=== PATIENT | female | born 1995 | race Caucasian/White ===

== ENCOUNTER 2023-05-18 17:13 | Emergency (ER) | payer OTHER, SELFPAY ==
[2023-05-18 17:48] VITALS: BP 139/93; PULSE 88; RESP 20; TEMP 36.8; O2SAT 98; BMI 38.5
--- NOTE | 2023-05-18 17:51 | ED.GENADULT ---
HPI - General Adult General Chief complaint: Upper Respiratory Symptoms Stated complaint: fever Source: patient Mode of arrival: ambulatory Limitations: no limitations History of Present Illness HPI narrative: patient left before being evaluated by ED provider Related Data Allergies Allergy/AdvReac Type Severity Reaction Status Date / Time No Known Allergies Allergy Verified 05/18/23 17:48 [facility] Social History Social History Advance Directives: No Advance Directives Information Provided: No Physical Exam ED Vital Signs: Vital Signs - 24 hr 05/18/23 17:48 Temperature 98.2 F Pulse Rate 88 Respiratory Rate 20 Blood Pressure 139/93 H Pulse Oximetry 98 Oxygen Delivery Method Room Air BMI result Body Mass Index 38.5 Course Course Course Narrative: RME: 28 yold female presents to the ED for fever, coughing, runny nose, and sore throat. Covid, influenza, and strep ordered. Medical Decision Making Lab Data Labs: Lab Results 05/18/23 05/18/23 05/18/23 Range/Units 19:30 19:30 19:30 COVID-19 (EMILY) Negative (Negative) COVID-19 Clin Com See Note Influenza Type A (ALMAZ) Negative (Negative) Influenza Type B (ALMAZ) Negative (Negative) Influenza A & B Note See Note S. pyogenes GrpA ALMAZ Negative (Negative) Discharge Plan Discharge Clinical Impression: Fever Patient Disposition: Elopement Interventions: LWBS Worksheet Last Done: 05/18/23 21:30 Discharge Date/Time: 05/18/23 21:31
== END 2023-05-18 21:31 | disposition left against medical advice (07) ==
PROVIDERS: Emergency Provider Emergency Medicine
DX: R50.9 Fever, unspecified (principal); R05.9 Cough, unspecified; J02.9 Acute pharyngitis, unspecified; Z20.822 Contact with and (suspected) exposure to COVID-19
CPT/HCPCS: 87502; 87635; 87651; 99281; 99283

== ENCOUNTER 2023-05-23 10:00 | Emergency (ER) | payer OTHER, SELFPAY ==
[2023-05-23 10:02] VITALS: BP 137/67; PULSE 88; RESP 19; TEMP 36.6; O2SAT 98; BMI 38.5
[2023-05-23 11:28] LABS: MANUAL DIFF FLAG NO
[2023-05-23 11:32] LABS: Basophils Absolute Auto 0.1 X10*3/uL (0.0-0.2); Basophils Percent Auto 0.4 % (0-2); Eosinophils Absolute Auto 0.5 X10*3/uL (0.0-0.4); Eosinophils Percent Auto 3.2 % (0-4); Hematocrit 42.1 % (37.0-47.0); Hemoglobin 13.8 g/dl (12.0-16.0); Imm Gran Abs Auto 0.23 X10*3/uL (0.00-0.03); Imm Gran Pct Auto 1.6 % (0.0-0.4); Lymphocytes Absolute Auto 2.9 X10*3/uL (1.2-4.9); Lymphocytes Percent Auto 20.3 % (20-40); Mean Corpuscular HGB Conc 32.8 g/dl (31.0-35.0); Mean Corpuscular Hemoglobin 26.6 pg (27.0-33.0); Mean Corpuscular Volume 81.3 fL (80.0-98.0); Mean Platelet Volume 9.5 fL (9.4-12.3); Monocytes Absolute Auto 0.7 X10*3/uL (0.1-1.2); Monocytes Percent Auto 5.1 % (2-11); Neutrophils Absolute Auto 9.8 x10*3/uL (2.0-8.3); Neutrophils Percent Auto 69.4 % (45-73); Platelet Count 276 X10*3/uL (160-400); Red Blood Count 5.18 X10*6/uL (4.20-5.50); Red Cell Distribution Width 12.9 % (11.0-16.0); White Blood Count 14.1 X10*3/uL (4.8-10.8)
[2023-05-23 11:45] LABS: Alanine Aminotransferase 36 U/L (0-31); Albumin Level 4.4 g/dL (3.5-5.0); Alkaline Phosphatase 111 U/L (39-117); Anion Gap 12 (12-20); Aspartate Amino Transferase 22 U/L (5-31); Bilirubin Total 0.6 mg/dL (0.0-1.0); Blood Urea Nitrogen 11 mg/dL (9-16); Calcium 9.8 mg/dL (8.4-10.2); Carbon Dioxide 26 mmol/L (22-29); Chloride 107 mmol/L (96-108); Creatinine Clr Calc Pharmacy 155.8; Estimated Glomerular Filt Rate > 60; Glucose Random 101 mg/dL (60-115); Potassium 3.9 mmol/L (3.3-5.1); Sodium 141 mmol/L (135-145); Total Protein 8.1 g/dL (6.5-8.0)
--- NOTE | 2023-05-23 11:55 | ED.GENADULT ---
HPI - General Adult General Chief complaint: Dental/Oral Stated complaint: jaw pain/ not feeling well Time Seen by Provider: 05/23/23 10:11 Source: patient Mode of arrival: ambulatory Limitations: no limitations History of Present Illness HPI narrative: 28 yold female presents to the ED for coughing, left jaw pain, bodyaches, chills, night sweats, and sinus pain for one week. patient denies any chest pain, shortness of breath, leg swelilng, calf pain, recent long travel, birthcontrol piills, or recent surgery. 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 patient states she was tested negative for flu, COVID, and strep Related Data Previous Rx's Medication Instructions Recorded azithromycin 250 mg tablet See Rx Instructions PO .COMPLEX #6 05/23/23 tabs benzonatate 200 mg capsule 200 mg PO BID PRN cough 5 days #15 05/23/23 caps prednisone 20 mg tablet 40 mg PO DAILY 5 days #10 tabs 05/23/23 Allergies Allergy/AdvReac Type Severity Reaction Status Date / Time No Known Allergies Allergy Verified 05/23/23 10:02 Review of Systems Review of Systems: coughing, sinus pain, bodyaches, chills, night sweats, subjecting fevers Yes all other systems are reviewed and are negative PMFSH Social History Social History Advance Directives: No Advance Directives Information Provided: No Physical Exam ED Vital Signs: Vital Signs - 24 hr 05/23/23 10:02 Temperature 98 F Pulse Rate 88 Respiratory Rate 19 Blood Pressure 137/67 Pulse Oximetry 98 Oxygen Delivery Method Room Air BMI result Body Mass Index 38.5 Const General: cooperative, healthy appearing, comfortable, no acute distress, well developed and awake Orientation/consciousness: oriented to person, oriented to place, oriented to time and patient oriented x3 HENMT Other: negative for any facial swelling or neck swelling. Oral exam negative for signs of any tooth infection / dental exam. Head: Yes normal to inspection, Yes No palpable skull fracture present, Yes normocephalic and Yes atraumatic Ears: hearing grossly normal bilaterally, external ears normal, TM's normal bilaterally, TM normal on the right, TM normal on the left, EAC's normal, mastoids normal and no periauricular adenopathy Face and sinus: Yes sinus tenderness ( maxillary sinus) Throat: Yes posterior oropharynx normal, Yes tonsils normal and Yes uvula midline Eyes General: appearance normal, both eyes and all related structures Neck Neck: Yes normal visual inspection, Yes full ROM, Yes no lymphadenopathy, Yes no meningeal signs, Yes trachea midline, Yes supple, No anterior neck swelling and No tender Chest Chest palpation & inspection: normal inspection of the chest and normal palpation of entire chest wall Resp Effort & Inspection: normal respiratory effort and able to speak in complete sentences Auscultation: clear to auscultation bilaterally Cardio Jugular venous distension: no JVD Heart sounds: S1 normal heart sound present and S2 normal heart sound present GI Inspection: Yes normal to inspection and No abdominal wall ecchymosis Palpation (GI): Soft to palpation, not firm, nontender, no guarding and not rigid General: No CVA tenderness and Yes no CVA tenderness Back/Spine/Pelvis Back: no CVA tenderness, No CVA tenderness and No back tenderness Skin General skin exam: no rashes or lesions noted and elasticity normal Neuro General: oriented to person, oriented to place, oriented to time, patient oriented x3, gait normal, tone normal, moves all extremities, Normal light touch and pain sensation, no meningeal signs, no focal motor deficits, CN's II-XI intact bilaterally and normal sensation to monofilament Extrem Other: Bilateral lower extremities negative for swelling, pitting edema, or calf tenderness. General: Yes normal to inspection and Yes full ROM Psych Appearance: grossly normal, well kempt and not disheveled Medical Decision Making Medical Decision Making MDM Narrative: 28-year-old female presents to ED for body aches, dry coughing, night sweats, chills, left-sided jaw pain, resolving sore throat. Patient states he tested negative for COVID, flu, and strep. Patient denies any chest pain or shortness of breath. Patient denies any pleurisy, leg swelling, calf pain, or coughing up blood. Patient denies any facial swelling or neck swelling. Patient denies any drooling or change in voice. Patient does states history of Aunt with heart attack at 44. Due to this patient will have EKG and 1 troponin. Heart score 1. Not suspecting pulmonary embolus. Not suspecting Won's angina or retropharyngeal abscess. Not suspecting myocardial infarction. Patient has history of asthma. lungs clear. Patient has white blood cell count [id number]. Seven days of symptoms will treat as bronchitis and be discharged with azithromycin and prednisone. Patient has albuterol inhaler at home which she will use. Differential Diagnosis Differential Diagnoses: The differential diagnosis associated with the presentation includes ( Bronchitis, pneumonia, myocardial infarction, Won angina, retropharyngeal abscess, viral syndrome, strep throat) Admission/Observation Consideration of admission/observation: Escalation of care including admission/observation considered Lab Data MDM Lab Attestation statement: I reviewed the patient's lab results. 05/23/23 11:23 05/23/23 11:23 Labs: Lab Results 05/23/23 05/23/23 05/23/23 Range/Units 11:23 11:23 11:23 WBC 14.1 H (4.8-10.8) X10*3/uL RBC 5.18 (4.20-5.50) X10*6/uL Hgb 13.8 (12.0-16.0) g/dl Hct 42.1 (37.0-47.0) % MCV 81.3 (80.0-98.0) fL MCH 26.6 L (27.0-33.0) pg MCHC 32.8 (31.0-35.0) g/dl RDW 12.9 (11.0-16.0) % Plt Count 276 (160-400) X10*3/uL MPV 9.5 (9.4-12.3) fL Immature Gran % (Auto) 1.6 H (0.0-0.4) % Neut % (Auto) 69.4 (45-73) % Lymph % (Auto) 20.3 (20-40) % Duchesne % (Auto) 5.1 (2-11) % Eos % (Auto) 3.2 (0-4) % Baso % (Auto) 0.4 (0-2) % Lymph # (Auto) 2.9 (1.2-4.9) X10*3/uL Duchesne # (Auto) 0.7 (0.1-1.2) X10*3/uL Eos # (Auto) 0.5 H (0.0-0.4) X10*3/uL Baso # (Auto) 0.1 (0.0-0.2) X10*3/uL Abs Immat Gran (auto) 0.23 H (0.00-0.03) X10*3/uL Absolute Neuts (auto) 9.8 H (2.0-8.3) x10*3/uL Absolute Nucleated RBC 0.000 (0.0-0.012) X10*3/uL Nucleated RBC % (auto) 0.0 (0.0-0.2) /100WBC PT 12.0 (10.0-13.1) SEC INR 1.0 (0.9-1.1) APTT 34.0 (26.0-36.4) SEC Sodium 141 (135-145) mmol/L Potassium 3.9 (3.3-5.1) mmol/L Chloride 107 (96-108) mmol/L Carbon Dioxide 26 (22-29) mmol/L Anion Gap 12 (12-20) BUN 11 (9-16) mg/dL Creatinine 0.68 (0.5-1.4) mg/dL Estim Creat Clear Calc 155.8 Estimated GFR > 60 Random Glucose 101 (60-115) mg/dL Calcium 9.8 (8.4-10.2) mg/dL Total Bilirubin 0.6 (0.0-1.0) mg/dL AST 22 (5-31) U/L ALT 36 H (0-31) U/L Alkaline Phosphatase 111 (39-117) U/L Troponin I High Sens (<3.5-17.0) ng/L Total Protein 8.1 H (6.5-8.0) g/dL Albumin 4.4 (3.5-5.0) g/dL 05/23/23 Range/Units 11:23 WBC (4.8-10.8) X10*3/uL RBC (4.20-5.50) X10*6/uL Hgb (12.0-16.0) g/dl Hct (37.0-47.0) % MCV (80.0-98.0) fL MCH (27.0-33.0) pg MCHC (31.0-35.0) g/dl RDW (11.0-16.0) % Plt Count (160-400) X10*3/uL MPV (9.4-12.3) fL Immature Gran % (Auto) (0.0-0.4) % Neut % (Auto) (45-73) % Lymph % (Auto) (20-40) % Duchesne % (Auto) (2-11) % Eos % (Auto) (0-4) % Baso % (Auto) (0-2) % Lymph # (Auto) (1.2-4.9) X10*3/uL Duchesne # (Auto) (0.1-1.2) X10*3/uL Eos # (Auto) (0.0-0.4) X10*3/uL Baso # (Auto) (0.0-0.2) X10*3/uL Abs Immat Gran (auto) (0.00-0.03) X10*3/uL Absolute Neuts (auto) (2.0-8.3) x10*3/uL Absolute Nucleated RBC (0.0-0.012) X10*3/uL Nucleated RBC % (auto) (0.0-0.2) /100WBC PT (10.0-13.1) SEC INR (0.9-1.1) APTT (26.0-36.4) SEC Sodium (135-145) mmol/L Potassium (3.3-5.1) mmol/L Chloride (96-108) mmol/L Carbon Dioxide (22-29) mmol/L Anion Gap (12-20) BUN (9-16) mg/dL Creatinine (0.5-1.4) mg/dL Estim Creat Clear Calc Estimated GFR Random Glucose (60-115) mg/dL Calcium (8.4-10.2) mg/dL Total Bilirubin (0.0-1.0) mg/dL AST (5-31) U/L ALT (0-31) U/L Alkaline Phosphatase (39-117) U/L Troponin I High Sens < 2.7 (<3.5-17.0) ng/L Total Protein (6.5-8.0) g/dL Albumin (3.5-5.0) g/dL Independent Interpretation I performed an independent interpretation of an: EKG ( normal sinus rhythm. Ventricular rate 70 a peer interval 166. QRS 83. QTC 444. Negative STEMI) and Plain X-Ray Radiology Impression Discussion of test interpretation with radiology: I have reviewed the radiologist's reading. External Record Review External record reviewed: Other ( Prior to ED visit) Prescription Management I considered prescription management with: Antibiotic and Other (Prednisone) Discharge Plan Discharge Clinical Impression: Bronchitis Patient Disposition: Home, Self-Care Instructions: How to Use a Metered-Dose Inhaler (ED), Acute Bronchitis (ED) Additional Instructions: your EKG and blood work came back normal. Chest x-ray negative for pneumonia. Use your albuterol inhaler as needed. He will be discharged with steroids, azithromycin, and cough medication. Return to the ED for any chest pain, shortness of breath, coughing up blood, leg swelling, calf pain, pleurisy, facial swelling, neck swelling, severe dental pain, ear pain, headache, dizziness, neck stiffness, intractable fever, weakness, chills, or any other concerning symptoms. Please follow-up with primary care provider Prescriptions: New azithromycin 250 mg tablet See Rx Instructions .ROUTE .COMPLEX Qty: 6 0RF Rx Instructions: For 250 mg dose pack: take 500 mg today (day 1), then 250 mg for 4 days (days 2-5) prednisone 20 mg tablet 40 mg PO DAILY 5 Days Qty: 10 0RF benzonatate 200 mg capsule 200 mg PO BID PRN (Reason: cough) 5 Days Qty: 15 0RF Stand Alone Forms: Work/School Release Interventions: ED Discharge Assessment Last Done: 05/23/23 13:17 Discharge Date/Time: 05/23/23 13:19 Print Language: Belgian
[2023-05-23 12:00] LABS: Troponin-I High Sensitivity < 2.7 ng/L (<3.5-17.0)
== END 2023-05-23 13:19 | disposition home or self-care (01) ==
PROVIDERS: Physician Assistant; Emergency Provider Emergency Medicine Emergency Medical Services; PCP Nurse Practitioner Pediatrics
DX: J40 Bronchitis, not specified as acute or chronic (principal); R05.9 Cough, unspecified; M79.10 Myalgia, unspecified site; R68.84 Jaw pain; Z79.899 Other long term (current) drug therapy
CPT/HCPCS: 36415; 71045; 80053; 84484; 85025; 85610; 85730; 93005; 99283

== ENCOUNTER 2024-02-16 10:45 | Emergency (ER) | payer OTHER, SELFPAY ==
[2024-02-16 10:56] VITALS: BP 147/92; PULSE 72; RESP 14; TEMP 36.8; O2SAT 98; BMI 25.4
--- NOTE | 2024-02-16 10:57 | ED.NEUROSD ---
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 She says that there seemed to be a pixelated visual phenomenon on the left side that interfered with her vision. She says that she then told a co-worker about what was happening and she realized that the left side of the coworkers face looked strangely smudge or distorted. At 1st she thought the problem was only in her left eye. However she covered her left eye and realized that they phenomenon was occurring in both eyes. She was then referred to the emergency room. She has never had an episode like this before. She says that she has a history of calls migraine headaches but she has never had headaches associated with any visual abnormalities. The visual symptoms were significantly improving at the time that I 1st evaluated her. She had no headache at that time. About 15 minutes later she developed a headache. Related Data Previous Rx's Medication Instructions Recorded azithromycin 250 mg tablet See Rx Instructions PO .COMPLEX #6 05/23/23 tabs benzonatate 200 mg capsule 200 mg PO BID PRN cough 5 days #15 05/23/23 caps prednisone 20 mg tablet 40 mg (2 x 20 mg) PO DAILY 5 days 05/23/23 #10 tabs Allergies Allergy/AdvReac Type Severity Reaction Status Date / Time No Known Allergies Allergy Verified 02/16/24 11:17 Review of Systems Review of Systems: Yes all other systems are reviewed and are negative [facility] Social History Social History Smoked in Last 30 Days: Yes Use of substances other than those prescribed or required for medical reasons: No Advance Directives: No Advance Directives Information Provided: Yes Physical Exam Vital Signs: Vital Signs: Last Vital Signs Temp 97.7 F 02/16/24 13:10 Pulse 73 02/16/24 13:10 Resp 16 02/16/24 13:10 BP 116/66 02/16/24 13:10 Pulse Ox 100 02/16/24 13:10 O2 Del Method Room Air 02/16/24 13:10 BMI result Body Mass Index 25.4 HEENT: Other: The patient was awake, alert, pleasant, cooperative. She does not appear in any distress and she did not display any obvious neurological deficit. She did not seem toxic Eyes: Other: Pupils are round equal, conjunctivae are clear, lateral gaze is intact bilaterally, visual padron are intact bilaterally. Neck: Other: No nuchal rigidity. Resp: Effort & Inspection: normal respiratory effort Auscultation: clear to auscultation bilaterally Cardio: Rate: regular rate Rhythm: regular rhythm Heart sounds: S1 normal heart sound present and S2 normal heart sound present Skin: Other: Skin is dry and unremarkable, no rash Neuro: Other: The patient is awake and alert with normal orientation and a normal mental status. Eye movements are intact. Visual padron are intact. The face is symmetrical. Speech is clear and normal. She has intact strength in all 4 extremities. No pronator drift. Finger-nose is intact. Gait is normal. NIH stroke scale is 0 Extrem: Other: No peripheral edema, no calf swelling or tenderness Medications Administered Discontinued Medications Generic Name Dose Route Start Last Admin Trade Name Freq PRN Reason Stop Dose Admin Acetaminophen 975 mg 02/16/24 12:34 02/16/24 13:08 Acetaminophen 325 Mg Tablet PO 02/16/24 12:35 975 mg ONCE ONE Administration Diphenhydramine HCl 25 mg 02/16/24 11:09 02/16/24 11:15 Diphenhydramine Hcl 50 Mg/Ml Vial IVPUSH 02/16/24 11:10 25 mg ONCE ONE Administration Sodium Chloride 1,000 mls @ 999 mls/hr 02/16/24 11:00 02/16/24 12:10 Ns IV 02/16/24 12:00 Infused .Q1H1M ARCADIO Infusion Ketorolac Tromethamine 10 mg 02/16/24 11:09 02/16/24 11:14 Ketorolac Tromethamine 15 Mg/Ml Vial IVPUSH 02/16/24 11:10 10 mg ONCE ONE Administration Metoclopramide HCl 10 mg 02/16/24 11:09 02/16/24 11:15 Metoclopramide Hcl 10 Mg/2 Ml Vial IVPUSH 02/16/24 11:10 10 mg ONCE ONE Administration Medical Decision Making Medical Decision Making MDM Narrative: 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 While at work today she developed an abnormal visual phenomenon in her left visual field. She describes having trouble reading things on the left side and she describes things looking like pixels and swirls on the left side of her visual field. Was sent to the emergency room for evaluation. At the time that I saw her her visual symptoms were improving. When I initially saw her she had no headache. Her initial neurological exam was normal and she looks quite well. Not long after my initial exam however the patient developed a headache and she looked quite uncomfortable. The headache is centered around the right eye. The patient is description of progress of her symptoms seems very consistent with a migraine headache preceded by a visual aura and scotoma. She was treated with metoclopramide, ketorolac, and diphenhydramine as well as IV fluids with some improvement in her headache. She was reassured that she was not having a a migraine. She will be discharged to follow up with her regular doctor. Lab Data 02/16/24 11:02 02/16/24 11:02 Labs: Lab Results 02/16/24 Range/Units 11:02 WBC 8.3 (4.8-10.8) X10*3/uL RBC 5.27 (4.20-5.50) X10*6/uL Hgb 14.3 (12.0-16.0) g/dl Hct 43.5 (37.0-47.0) % MCV 82.5 (80.0-98.0) fL MCH 27.1 (27.0-33.0) pg MCHC 32.9 (31.0-35.0) g/dl RDW 13.4 (11.0-16.0) % Plt Count 224 (160-400) X10*3/uL MPV 10.7 (9.4-12.3) fL Immature Gran % (Auto) 0.2 (0.0-0.4) % Neut % (Auto) 65.5 (45-73) % Lymph % (Auto) 27.6 (20-40) % Dickinson % (Auto) 4.7 (2-11) % Eos % (Auto) 1.6 (0-4) % Baso % (Auto) 0.4 (0-2) % Lymph # (Auto) 2.3 (1.2-4.9) X10*3/uL Dickinson # (Auto) 0.4 (0.1-1.2) X10*3/uL Eos # (Auto) 0.1 (0.0-0.4) X10*3/uL Baso # (Auto) 0.0 (0.0-0.2) X10*3/uL Abs Immat Gran (auto) 0.02 (0.00-0.03) X10*3/uL Absolute Neuts (auto) 5.4 (2.0-8.3) x10*3/uL Absolute Nucleated RBC 0.000 (0.0-0.012) X10*3/uL Nucleated RBC % (auto) 0.0 (0.0-0.2) /100WBC Sodium 141 (135-145) mmol/L Potassium 3.7 (3.3-5.1) mmol/L Chloride 110 H (96-108) mmol/L Carbon Dioxide 25 (22-29) mmol/L Anion Gap 10 L (12-20) BUN 12 (9-16) mg/dL Creatinine 0.66 (0.5-1.4) mg/dL Estim Creat Clear Calc 121.1 Estimated GFR > 60 Random Glucose 90 (60-115) mg/dL Calcium 9.3 (8.4-10.2) mg/dL Total Bilirubin 0.8 (0.0-1.0) mg/dL Direct Bilirubin 0.3 (0.0-0.5) mg/dL AST 14 (5-31) U/L ALT 16 (0-31) U/L Alkaline Phosphatase 72 (39-117) U/L C-Reactive Protein < 0.10 (< or = 0.50) mg/dL Total Protein 7.4 (6.5-8.0) g/dL Albumin 4.1 (3.5-5.0) g/dL Beta HCG, Quant < 2 mIU/mL Independent Interpretation I performed an independent interpretation of an: EKG Interpretation: EKG at 11:02 shows normal sinus rhythm with a sinus arrhythmia at 71 beats per minute. It is a normal EKG. No change from previous. Discharge Plan Discharge Clinical Impression: Migraine headache Patient Disposition: Home, Self-Care Instructions: Migraine Headache (ED) Additional Instructions: I believe you have had a migraine headache today. Please rest and take it easy the rest of today. Often sleep is very helpful for migraines. You may use ibuprofen and acetaminophen as needed at home for ongoing discomfort. Please follow-up soon with your regular doctor to discuss this syndrome further. Return to the emergency room if worse. Prescriptions: No Action azithromycin 250 mg tablet See Rx Instructions .ROUTE .COMPLEX Qty: 6 0RF Rx Instructions: For 250 mg dose pack: take 500 mg today (day 1), then 250 mg for 4 days (days 2-5) prednisone 20 mg tablet 40 mg PO DAILY 5 Days Qty: 10 0RF benzonatate 200 mg capsule 200 mg PO BID PRN (Reason: cough) 5 Days Qty: 15 0RF Referrals: [facility] [Provider Group] (migraine)
--- NOTE | 2024-02-16 10:58 | ECG_ITS ---
Test Reason : stroke Blood Pressure : / mmHG Vent. Rate : 071 BPM Atrial Rate : 071 BPM P-R Int : 122 ms QRS Dur : 088 ms QT Int : 378 ms P-R-T Axes : 025 061 019 degrees QTc Int : 410 ms Normal sinus rhythm with sinus arrhythmia Normal ECG When compared with ECG of 23-MAY-2023 11:10, No significant change was found Referred By: Ramana Mantilla Electronically Signed By:YAN MIRANDA MD
--- NOTE | 2024-02-16 11:05 | PC.NURSE ---
flower muhammad notified pt c/o headache and slight nausea/photophobia
[2024-02-16] MEDS: 0.9 % Sodium Chloride 1,000 ML 999 ML IV (11:06)
[2024-02-16 11:13] LABS: MANUAL DIFF FLAG NO
[2024-02-16] MEDS: Ketorolac Tromethamine 15 MG/ML VIAL 10 MG IVPUSH (11:14)
[2024-02-16 11:15] LABS: Basophils Percent Auto 0.4 % (0-2); Eosinophils Absolute Auto 0.1 X10*3/uL (0.0-0.4); Eosinophils Percent Auto 1.6 % (0-4); Hematocrit 43.5 % (37.0-47.0); Hemoglobin 14.3 g/dl (12.0-16.0); Imm Gran Abs Auto 0.02 X10*3/uL (0.00-0.03); Imm Gran Pct Auto 0.2 % (0.0-0.4); Lymphocytes Absolute Auto 2.3 X10*3/uL (1.2-4.9); Lymphocytes Percent Auto 27.6 % (20-40); Mean Corpuscular HGB Conc 32.9 g/dl (31.0-35.0); Mean Corpuscular Hemoglobin 27.1 pg (27.0-33.0); Mean Corpuscular Volume 82.5 fL (80.0-98.0); Mean Platelet Volume 10.7 fL (9.4-12.3); Monocytes Absolute Auto 0.4 X10*3/uL (0.1-1.2); Monocytes Percent Auto 4.7 % (2-11); Neutrophils Absolute Auto 5.4 x10*3/uL (2.0-8.3); Neutrophils Percent Auto 65.5 % (45-73); Platelet Count 224 X10*3/uL (160-400); Red Blood Count 5.27 X10*6/uL (4.20-5.50); Red Cell Distribution Width 13.4 % (11.0-16.0); White Blood Count 8.3 X10*3/uL (4.8-10.8)
[2024-02-16] MEDS: Metoclopramide HCl 10 MG/2 ML VIAL IVPUSH (11:15)
[2024-02-16] MEDS: diphenhydrAMINE HCL 50 MG/ML VIAL 25 MG IVPUSH (11:15)
[2024-02-16 11:28] LABS: Alanine Aminotransferase 16 U/L (0-31); Albumin Level 4.1 g/dL (3.5-5.0); Alkaline Phosphatase 72 U/L (39-117); Anion Gap 10 (12-20); Aspartate Amino Transferase 14 U/L (5-31); Bilirubin Direct 0.3 mg/dL (0.0-0.5); Bilirubin Total 0.8 mg/dL (0.0-1.0); Blood Urea Nitrogen 12 mg/dL (9-16); C Reactive Protein < 0.10 mg/dL (< or = 0.50); Calcium 9.3 mg/dL (8.4-10.2); Carbon Dioxide 25 mmol/L (22-29); Chloride 110 mmol/L (96-108); Creatinine Clr Calc Pharmacy 121.1; Estimated Glomerular Filt Rate > 60; Glucose Random 90 mg/dL (60-115); Potassium 3.7 mmol/L (3.3-5.1); Sodium 141 mmol/L (135-145); Total Protein 7.4 g/dL (6.5-8.0)
[2024-02-16 11:36] LABS: HCG Quantitative < 2 mIU/mL
--- NOTE | 2024-02-16 11:49 | MHC.STROKE ---
Called to ED for possible Stroke Alert Upon arrival to ED, patient was in room 9. Pt awake, alert, and oriented x 3. Tearful Pt had already been evaluated by Provider Annalee. Pt with history of migraines. Vision (which patient reports was compromised) had improved and patient now reports migraine headache. Pt states that she has never had any visual disturbances associated with her headaches in the past. In speaking with MD Mantilla, plan is to treat patient for migraine. Pt aware and agreeable to plan. Will continue to assist if needed.
[2024-02-16] MEDS: Acetaminophen 325 MG TABLET 975 MG PO (13:08)
[2024-02-16 13:10] VITALS: BP 116/66; PULSE 73; RESP 16; TEMP 36.5; O2SAT 100
[2024-02-16 13:42] VITALS: BP 133/64; PULSE 79; RESP 16; TEMP 36.4; O2SAT 98
== END 2024-02-16 13:42 | disposition home or self-care (01) ==
PROVIDERS: Emergency Provider Emergency Medicine
DX: G43.909 Migraine, unspecified, not intractable, without status migrainosus (principal); I49.8 Other specified cardiac arrhythmias; R11.0 Nausea; Z79.899 Other long term (current) drug therapy
CPT/HCPCS: 36415; 80048; 80076; 84702; 85025; 86140; 93005; 96361; 96374; 96375; 99284; 99285; J1200; J1885; J2765

== ENCOUNTER → 2024-02-16 10:58 | Outpatient (BNV) | payer OTHER, SELFPAY | PROVIDERS: Emergency Provider Emergency Medicine; Visit Provider Internal Medicine Cardiovascular Disease | DX: R51.9 Headache, unspecified (principal) | CPT/HCPCS: 93010 ==

== ENCOUNTER → 2025-04-27 12:58 | Outpatient (BNVA) | payer OTHER, SELFPAY | DX: Z13.89 Encounter for screening for other disorder (principal) | CPT/HCPCS: 84450; 84460; 84702; 85025; 86803; 87389; 99204 ==